=== PATIENT | female | born 2000 | race Hispanic/Latino ===

== ENCOUNTER 2018-03-01 12:36 | Emergency (ER) | payer OTHER, SELFPAY ==
[2018-03-01 14:09] LABS: Pregnancy Test - Urine (BHCG) Negative (Negative)
[2018-03-01 14:10] LABS: Pregu Control Background? CLEAR/WHITE (CLR/WHITE); Pregu Control Bar Appear? YES (CONTROL BAR); Specific Gravity 1.025 (1.002-1.036)
[2018-03-01] MEDS ORDERED: hydrOXYzine 25 MG TAB ONE (14:51)
== END 2018-03-01 15:58 | disposition home or self-care (01) ==
LOC: ERS 12:36
DX: R55 Syncope and collapse (principal)
CPT/HCPCS: 36416; 81025; 99284

== ENCOUNTER 2019-01-04 06:48 | Inpatient (IN) | payer OTHER ==
[2019-01-04 07:30] VITALS: BMI 31.4
--- NOTE | 2019-01-04 08:00 | PDOC.FPROB ---
FMR OB H&P: HPI - History of Present Illness Chief Complaint: Contractions Indentification: 18 year old at 38.6 wks History of Present Illness: 18 year old at 38.6 wks by 11.3 wk sono presents with contractions since 4: 00 AM. Patient states they are every 5 minutes and rates them as a 6-7/10. Patient denies vaginal bleeding, vaginal discharge, LoF. Endorses good movement. 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 History: No history of STD's - Surgical History Sx History: None - Social History Social History: Denies alcohol, tobacco, or drug use - Family History Family History: Insignificant FMR OB H&P: Medications - Current Home Medications: Medication Instructions Recorded Confirmed Type Vit 108/Iron/Folic AC 1 tablet PO DAILY 01/04/19 01/04/19 History [ One Tablet] Allergies/Adverse Reactions: Allergies Allergy/AdvReac Type Severity Reaction Status Date / Time No Known Allergies Allergy Verified 01/04/19 07:30 FMR OB H&P: ROS - Review of Systems General: denies: fever/chills, weight/appetite/sleep changes Eyes: denies: vision changes, double vision ENT: denies: nasal congestion, rhinorrhea Cardiovascular: denies: chest pain, palpitation, edema Respiratory: denies: cough, congestion, shortness of breath Gastrointestinal: denies: abdominal pain, nausea, vomiting, diarrhea, constipation Genitourinary (Female): reports: contractions. denies: dysuria, vaginal discharge, vaginal pain, vaginal bleeding, vaginal pressure Musculoskeletal: denies: pain, stiffness, tenderness Neurologic: denies: numbness, syncope Integumentary: denies: itching, rash Hematologic/Lymphatic: denies: prolonged or excessive bleeding Psychological: denies: depression, anxiety FMR OB H&P: Vital Signs - Maternal Vital signs: Vital Signs - First Documented Temp Pulse Resp BP 98.5 F 86 18 116/78 01/04/19 07:22 01/04/19 07:22 01/04/19 07:22 01/04/19 07:22 - Heart Tones Baseline: 150 Variability: moderate Acceleration: present Deceleration: absent Category: category 1 [place] contractions every: q2-3 min FMR OB H&P: Physical Exam - Physical Exam General: NAD, awake, alert and oriented HEENT: MMM, grossly normal vision, grossly normal hearing Neck: supple Heart: RRR, normal S1/S2, no murmurs/rubs/gallops General: CTAB, no respiratory distress Abdomen: soft, gravid, non-tender Musculoskeletal: normal gait and station, pulses present, FROM in all four extremities Neurological: no tremor, no focal deficit Skin: no rash, capillary refill <2 seconds Lymphatic: no unusual bruising or bleeding, no purpura Psychiatric: intact recent and remote memory, good judgement and insight, normal mood and affect - Pelvic Exam Vulva: normal hair distribution, no discharge, no blood SVE: /-2 FMR OB H&P: A/P - Problem List (1) Term Current Visit: Yes Status: Acute Code(s): Z34.80 - ENCOUNTER FOR SUPRVSN OF NORMAL , UNSP TRIMESTER (2) Late care Current Visit: Yes Status: Acute Code(s): O09.30 - SUPRVSN OF PREG W INSUFFICIENT ANTENAT CARE, UNSP TRIMESTER Disposition: 18 year old at 38.6 wks presents with contractions 1. TIUP in labor - Cervical check /-2, mid position, soft at appx 7:30 - Sim score of 8 - Admit to L&D for expectant management; pitocin if needed - q2-3 min contractions - Patient does not desire epidural 2. Late PNC (but LMP agrees with first trimester sono) - Consistent with appointments since presenting to care Dispo: Admit to L&D for expectant management. Pitocin if needed. Discussion: Date/Time: 01/04/19 0750 This H&P was discussed with Dr. Shultz who agrees with the above documentation and plan. Faculty note: I have reviewed and evaluated this patient. Plan as described. Signature: Debora Garcia, PGY-2
--- NOTE | 2019-01-04 08:26 | PDOC.EVN ---
Event Note - Event Note Event Note: Faculty attestation: H&P HPI: 38 weeks 6 days primip with good dates here for CTX since 0400 Q5min. No ROM, no VB, no dsch; good fm. GBS negative. Was 1cm last week in clinic Past med: neg Allergy: no Surgical: none Social: negative x 3 PHYSICAL: Vitals: 116/78 86 afebrile CX: 3-4/75/-2, midposition and soft...ann of 8 Monitor: FHTS cat 1, 150s; CTX every 2-3 minutes A/P: early term in latent labor but favorable CX with change from last week, regular CTX, GBS neg. We will admit for pain control and early labor based on CTX No ABX needed Pit[place] to augment if needed
[2019-01-04] MEDS ORDERED: Butorphanol Tartrate 1 MG/ML VIAL SLOW IVP PRN (08:37)
[2019-01-04] MEDS ORDERED: Ibuprofen 800 MG TAB PO PRN (08:37)
[2019-01-04] MEDS ORDERED: NS / Oxytocin 40 units/1000ml 1,000 ML IV PRN (08:37)
[2019-01-04] MEDS ORDERED: Lidocaine 1% (PF) 30 ML VIAL SC PRN (08:37)
[2019-01-04] MEDS ORDERED: Promethazine HCl 25 MG/ML VIAL IM PRN (08:37)
[2019-01-04] MEDS ORDERED: Docusate 100 MG CAP PO PRN (08:37)
[2019-01-04] MEDS ORDERED: Ondansetron PF 4 MG/2 ML Vial IVP PRN ×2 (08:37→16:33)
[2019-01-04] MEDS ORDERED: Acetaminophen 500 MG TAB PO PRN (08:37)
[2019-01-04] MEDS ORDERED: Lactated Ringer's 1,000 ML IV SCH (08:45)
[2019-01-04 11:08] LABS: Hemoglobin 14.7 g/dL (12.0-16.0); Mean Corpuscular HGB CONC 32.7 g/dL (32.0-36.0); Mean Corpuscular Hemoglobin 30.5 pg (25.0-35.0); Mean Corpuscular Volume 93.4 fL (78.0-98.0); Mean Platelet Volume 9.1 fL (7.4-10.4); Platelet Count 161 thou/uL (130-400); RBC Distribution Width 12.6 % (11.5-14.5); Red Blood Cell (RBC) Count 4.81 mill/uL (4.00-5.20); White Blood Cell (WBC) Count 19.7 thou/uL (4.8-10.8)
[2019-01-04 11:31] LABS: Syphilis Antibody Nonreactive (Nonreactive); Syphilis Antibody Index 0.06 S/CO (<1.00 Non-Reactive)
--- NOTE | 2019-01-04 12:17 | PDOC.LDPN ---
Labor & Delivery Progress Note - Subjective Subjective: comfortable - Objective Vital signs reviewed and normal: yes General: NAD, resting Uterine fundus: non tender SVE: 10:50 by Jose Dilation: 4 Effacement: 90% Station: -1 FHT: category 1, variability present [place] contractions every: q3-5 min - Assessment (1) Term Code(s): Z34.80 - ENCOUNTER FOR SUPRVSN OF NORMAL , UNSP TRIMESTER Current Visit: Yes Status: Acute (2) Late care Code(s): O09.30 - SUPRVSN OF PREG W INSUFFICIENT ANTENAT CARE, UNSP TRIMESTER Current Visit: Yes Status: Acute Plan: continue plan of care -: Patient making cervical change and dora regularly. Continue expectant management.
[2019-01-04 12:25] LABS: HBSAg Index 0.21 S/CO (0-0.99); Hep B Surf Ag Non-Reactive S/CO (NonReactive)
--- NOTE | 2019-01-04 14:42 | PDOC.LDPN ---
Labor & Delivery Progress Note - Subjective Subjective: painful contractions, vaginal pressure - Objective Vital signs reviewed and normal: yes General: breathing through contractions Uterine fundus: non tender SVE: By nurse at 13:40 Dilation: 7 Effacement: 100% Station: 0 FHT: category 1, variability present [place] contractions every: q2 min - Assessment (1) Term Code(s): Z34.80 - ENCOUNTER FOR SUPRVSN OF NORMAL , UNSP TRIMESTER Current Visit: Yes Status: Acute (2) Late care Code(s): O09.30 - SUPRVSN OF PREG W INSUFFICIENT ANTENAT CARE, UNSP TRIMESTER Current Visit: Yes Status: Acute Plan: continue plan of care -: Progressing well. No interventions needed. Continue expectant management.
--- NOTE | 2019-01-04 16:02 | PDOC.EVN ---
Event Note - Event Note Event Note: OBGYN Faculty note: I was called about 30 minutes ago or so that this patient was delievering in LDR3. 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 Patient underwent without issues. Please see full resident note regarding that delivery, with the other construction crew member present.
[2019-01-04] MEDS ORDERED: diphenhydrAMINE 25 MG CAP PO PRN (16:33)
[2019-01-04] MEDS ORDERED: Lanolin Ointment 7 GM TUBE TOP PRN (16:33)
[2019-01-04] MEDS ORDERED: Milk Of Magnesia 30 ML UDCUP PO PRN (16:33)
[2019-01-04] MEDS ORDERED: Preparation H Ointment 28 GM TUBE PR PRN (16:33)
[2019-01-04] MEDS ORDERED: Bisacodyl 10 MG SUPP PR PRN (16:33)
[2019-01-04] MEDS ORDERED: Benzocaine/Menthol 20-0.5% 60 ML CAN TOP PRN (16:33)
[2019-01-04] MEDS ORDERED: NS / Oxytocin 40 units/1000ml 1,000 ML IV SCH (16:33)
[2019-01-04] MEDS: Ferrous Sulfate 325 MG TAB PO SCH (19:07)
[2019-01-04] MEDS: Ibuprofen 800 MG TAB PO SCH (21:49)
[2019-01-04] MEDS: Docusate Calcium (SURFAK) 240 MG CAP PO SCH (21:50)
--- NOTE | 2019-01-05 02:29 | PDOC.PP ---
Post Progress Note Post Day #: 1 Subjective: Patient awake with baby, doing well. No issues. I discussed with her that I was in the OR when she was delivering, so the other MDs attended her PO intake tolerated: yes Flatus: yes Ambulation: yes Vital Signs (12 hours) Temp Pulse Resp BP Pulse Ox 01/05/19 00:43 98.4 F 108 H 18 130/66 98 01/04/19 20:00 98.5 F 129 H 20 132/61 100 01/04/19 18:37 98.7 F 129 H 16 129/64 98 Weight Weight 183 lb - Physical Examination General: NAD Cardiovascular: no m/r/g Respiratory: clear to auscultation bilaterally Abdominal: + bowel sounds, lochia, no distention, appropriately TTP Extremities: negative homans (B) Psychiatric: A&Ox3, normal affect Result Diagrams: 01/04/19 10:39 Additional Labs: Post Labs Blood Type O POSITIVE 01/04/19 10:39 Hep Bs Antigen Non-Reactive S/CO (NonReactive) 01/04/19 10:39 (1) Term Code(s): Z34.80 - ENCOUNTER FOR SUPRVSN OF NORMAL , UNSP TRIMESTER Status: Acute (2) Late care Code(s): O09.30 - SUPRVSN OF PREG W INSUFFICIENT ANTENAT CARE, UNSP TRIMESTER Status: Acute (3) Vaginal delivery Code(s): O80 - ENCOUNTER FOR FULL-TERM UNCOMPLICATED DELIVERY Status: Acute - Assessment/Plan A/P: PPD1 for this , doing well. Plan: routine PP care BPs normal Initial HCT noted with value of 44...no evidence HTN Continue to follow today...probable dsch PPD2 tomorrow Tuesday
[2019-01-05] MEDS: Ibuprofen 800 MG TAB PO SCH ×3 (06:01→21:44)
[2019-01-05] MEDS: Ferrous Sulfate 325 MG TAB PO SCH (07:17)
[2019-01-05] MEDS: Docusate Calcium (SURFAK) 240 MG CAP PO SCH ×2 (08:51→21:44)
[2019-01-05] MEDS: Prenatal Vitamin 1 TAB PO SCH (08:51)
[2019-01-05] MEDS ORDERED: Adacel (T-DAP) 0.5 ML SYRINGE IM ONE (09:00)
[2019-01-06] MEDS: Ibuprofen 800 MG TAB PO SCH ×2 (05:48→15:09)
[2019-01-06] MEDS: Ferrous Sulfate 325 MG TAB PO SCH (07:38)
[2019-01-06 07:39] VITALS: BP 116/68; TEMP 98.1
[2019-01-06] MEDS: Prenatal Vitamin 1 TAB PO SCH (08:57)
[2019-01-06] MEDS: Docusate Calcium (SURFAK) 240 MG CAP PO SCH (08:57)
--- NOTE | 2019-01-06 09:32 | PDOC.PP ---
Post Progress Note Post Day #: 2 Subjective: Patient doing well. No significant overnight events. Lochia minimal. Patient ambulating. PO intake tolerated: yes Flatus: yes Ambulation: yes Vital Signs (12 hours) Temp Pulse Resp BP Pulse Ox 01/06/19 07:38 98.1 F 77 18 116/68 99 Weight Weight 83.007 kg - Physical Examination General: NAD Cardiovascular: RRR Respiratory: non-labored breathing Abdominal: + bowel sounds, lochia (minimal), no distention, appropriately TTP Fundus firm & at: below umbilicus Neurological: no gross focal deficits Psychiatric: A&Ox3, normal affect Result Diagrams: 01/04/19 10:39 Additional Labs: Post Labs Blood Type O POSITIVE 01/04/19 10:39 Hep Bs Antigen Non-Reactive S/CO (NonReactive) 01/04/19 10:39 (1) Late care Code(s): O09.30 - SUPRVSN OF PREG W INSUFFICIENT ANTENAT CARE, UNSP TRIMESTER Status: Acute (2) Term delivered Code(s): O80 - ENCOUNTER FOR FULL-TERM UNCOMPLICATED DELIVERY Status: Acute (3) (spontaneous vaginal delivery) Code(s): O80 - ENCOUNTER FOR FULL-TERM UNCOMPLICATED DELIVERY Status: Acute - Assessment/Plan A/P: PPD2 for this , doing well. Plan: routine PP care BPs normal uncertain of contraception at this time follow with PNC in 2 weeks Plan to d/c this afternoon after 's bilirubin results. If needs bili lights, then plan for bed and breakfast if possible. Addendum - Attending - Attending Attestation Date/Time: 01/09/19 0916 I evaluated the patient and discussed the management with Dr. Islas. I agree with the Assessment and Plan documented above.
--- NOTE | 2019-01-08 09:39 | DN ---
DATE OF PROCEDURE: 01/04/2019 DELIVERING PHYSICIAN: Dr. Debora Garcia. PROCEDURE PERFORMED: Spontaneous vaginal delivery. ANESTHESIA: Local for repair. ESTIMATED BLOOD LOSS: 51 mL. PREOPERATIVE DIAGNOSES: Term intrauterine , in labor. care. INDICATION: This is a 18-year-old female, G1, P0, who presented in active labor. DELIVERY NOTE: This is a 18-year-old, G1, P0 at 38 and 6 weeks. She delivered a viable male at 1536 hours on 01/04 via spontaneous vaginal delivery. Following uneventful and a planned course, a vigorous male was delivered over intact perineum in occipitoanterior position, most compound presentation. Anterior shoulder and remainder of body delivered. No nuchal cord. The head was held down. The mouth and nares were bulb suctioned. Cord was cut after delayed cord clamping. Cord blood collected. Placenta delivered intact with a three-vessel cord noted. Fundal massage was performed and the fundus was firm. The cervix and vagina were inspected and found to have a second-degree perineal laceration which was repaired using 2-0 Vicryl on each. Local anesthetic was used prior to the repair. After repair, the laceration was noted to be hemostatic. went to nursery in good condition for routine care. Apgars were 8 and 9 at one and five minutes respectively. The patient tolerated the procedure well, went to after routine recovery/care. Job ID: [id number]
== END 2019-01-06 17:38 | disposition home or self-care (01) | DRG 807 ==
LOC: L&D/OP 06:48 → L&D 10:58 → 3SE 18:35
PROVIDERS: ADMIT Obstetrics & Gynecology; ATTEND Obstetrics & Gynecology
PROC: 0KQM0ZZ Repair Perineum Muscle, Open Approach (ICD-10-PCS; principal; 2019-01-04)
PROC: 10E0XZZ Delivery of Products of Conception, External Approach (ICD-10-PCS; 2019-01-04)
DX: O70.1 Second degree perineal laceration during delivery (principal); Z37.0 Single live birth; Z3A.38 38 weeks gestation of pregnancy
CPT/HCPCS: 36415; 85027; 86780; 86850; 86900; 86901; 87340; 99285; J0595; J2001

== ENCOUNTER 2019-03-30 21:21 | Emergency (ER) | payer OTHER ==
[2019-03-30] MEDS ORDERED: Lorazepam 2 MG/ML VIAL ONE (21:53)
[2019-03-30 22:11] LABS: #Basophils 0.1 thou/uL (0.0-0.2); #Eosinphils 0.1 thou/uL (0.0-0.7); #Lymphocytes 3.4 thou/uL (1.20-3.40); #Monocytes 0.6 thou/uL (0.11-0.59); #Neutrophils 2.7 thou/uL (1.40-6.50); %Basophils 0.8 % (0.0-1.0); %Eosinophils 1.7 % (0.0-10.0); %Lymphocytes 49.1 % (28.0-48.0); %Monocytes 8.7 % (0.0-4.0); %Neutrophils 39.7 % (31.0-61.0); Hemoglobin 14.2 g/dL (12.0-16.0); Mean Corpuscular HGB CONC 33.7 g/dL (32.0-36.0); Mean Corpuscular Hemoglobin 29.5 pg (25.0-35.0); Mean Corpuscular Volume 87.7 fL (78.0-98.0); Mean Platelet Volume 8.3 fL (7.4-10.4); Platelet Count 191 thou/uL (130-400); RBC Distribution Width 11.9 % (11.5-14.5); White Blood Cell (WBC) Count 6.9 thou/uL (4.8-10.8)
[2019-03-30 22:28] LABS: Anion Gap 12 mmol/L (10-20); BUN (Urea Nitrogen) 13 mg/dL (7.0-18.7); Calc. Creatinine Clearance 0 mL/min (70-130); Calcium 9.7 mg/dL (7.8-10.44); Carbon Dioxide 26 mmol/L (22-29); Chloride 107 mmol/L (98-107); Estimated GFR-MDRD Greater than 90; Glucose 88 mg/dL (70-105); Potassium 3.7 mmol/L (3.5-5.1); Sodium 141 mmol/L (136-145)
[2019-03-30 22:33] LABS: BHCG - Serum Negative (NEGATIVE); Pregs Control Background? CLEAR/WHITE (CLR/WHITE); Pregs Control Bar Appear? YES (CONTROL BAR)
[2019-03-31 00:12] LABS: HBCM Index 0.11 S/CO (0-0.79); HBSAg Index 0.39 S/CO (0-0.99); Hep A IgM AB Non-Reactive (NonReactive); Hep A IgM S/CO 0.25 S/CO (0-0.79); Hep B Surf Ag Non-Reactive S/CO (NonReactive); Hep C IgG Ab Non-Reactive (NonReactive); Hepatitis B Core IgM Abs Non-Reactive (NonReactive)
== END 2019-03-31 00:03 | disposition home or self-care (01) ==
LOC: ERS 21:21
DX: F41.9 Anxiety disorder, unspecified (principal)
CPT/HCPCS: 36415; 80048; 80074; 84703; 85025; 96361; 96374; J2060

== ENCOUNTER 2019-11-09 22:03 | Emergency (ER) | payer MEDICAID, OTHER, SELFPAY ==
[2019-11-09] MEDS ORDERED: Diazepam 5 MG TAB ONE (23:09)
[2019-11-09] MEDS ORDERED: Acetaminophen 500 MG TAB ONE (23:18)
--- NOTE | 2019-11-09 23:22 | CT ---
CT Brain WO Con HISTORY: Shaking to right arm and right frontal headache. COMPARISON: None. FINDINGS: The ventricular and cisternal system is within normal limits. There are no signs of intrace rebral hemorrhage or extra-axial fluid collections. The mastoid air cells are clear. There is some mucosal change seen within the visualized portions of the sphenoid and ethmoid air cells. Maxillary sinuses are not visualized. IMPRESSION: No acute intracranial abnormalities.
== END 2019-11-10 00:55 | disposition home or self-care (01) ==
LOC: ERS 22:03
DX: R50.9 Fever, unspecified (principal); R25.1 Tremor, unspecified; F41.0 Panic disorder [episodic paroxysmal anxiety]
CPT/HCPCS: 70450; 87081; 87430; 87804; 96360

== ENCOUNTER 2020-09-09 19:02 | Emergency (ER) | payer SELFPAY ==
[2020-09-09] MEDS ORDERED: traMADol HCl 50 MG TAB ONE (20:04)
[2020-09-09] MEDS ORDERED: Boostrix 0.5 ML VIAL ONE (20:10)
[2020-09-09] MEDS ORDERED: Bacitracin 1 PK ONE (20:21)
== END 2020-09-09 20:32 | disposition home or self-care (01) ==
LOC: ERS 19:02
DX: T24.212A Burn of second degree of left thigh, initial encounter (principal); T31.0 Burns involving less than 10% of body surface; F41.9 Anxiety disorder, unspecified; X15.8XXA Contact with other hot household appliances, initial encounter
CPT/HCPCS: 90471; 90715

== ENCOUNTER 2024-01-11 08:16 | Emergency (ER) | payer OTHER, SELFPAY ==
[2024-01-11 09:52] LABS: Bacteria/HPF None Seen HPF (None Seen); Bilirubin Negative (Negative); Blood, Urine Negative (Negative); CAUTI Indications for Culture Pregnancy; Clarity Clear (Clear); Glucose, Urine (Dipstick) 70 mg/dL (Negative); Ketone, Urine Negative (Negative); Leukocyte Negative Leu/uL (Negative); Nitrite Negative (Negative); Protein, Urine (Dipstick) Negative (Neg-Trace); RBC/HPF None Seen HPF (0-3); Specific Gravity, Urine 1.024 (1.002-1.036); Squamous Epithelial 0-3 HPF (0-3); Urobilinogen Normal mg/dL (Less than 2); WBC/HPF 0-3 HPF (0-3)
[2024-01-11 09:57] LABS: Urine Culture Reflex Yes Yes
[2024-01-11 11:34] LABS: #Eosinphils 0.1 thou/uL (0.0-0.7); #Monocytes 0.5 thou/uL (0.11-0.59); #Neutrophils 5.6 thou/uL (1.40-6.50); %Basophils 0.1 % (0.0-1.0); %Eosinophils 0.9 % (0.0-10.0); %Lymphocytes 22.5 % (21.0-51.0); %Monocytes 6.1 % (0.0-10.0); Hematocrit 35.1 % (36.0-47.0); Hemoglobin 12.3 g/dL (12.0-16.0); Mean Corpuscular Hemoglobin 31.7 pg (27.0-31.0); Mean Corpuscular Volume 90.5 fl (78.0-98.0); Mean Platelet Volume 10.3 fL (7.4-10.4); Platelet Count 162 10x3/uL (130-400); RBC Distribution Width 13.5 % (11.5-14.5); Red Blood Cell (RBC) Count 3.88 mill/uL (4.20-5.40); White Blood Cell (WBC) Count 8.1 10x3/uL (4.8-10.8)
[2024-01-11 12:00] LABS: Anion Gap 9 mmol/L (10-20); BUN (Urea Nitrogen) 6 mg/dL (7.0-18.7); Calc. Creatinine Clearance 0 mL/min (70-130); Carbon Dioxide 23 mmol/L (22-29); Chloride 107 mmol/L (98-107); Estimated GFR 126; Glucose 82 mg/dL (70-105); Potassium 3.8 mmol/L (3.5-5.1); Sodium 135 mmol/L (136-145)
== END 2024-01-11 12:29 | disposition home or self-care (01) ==
LOC: ERS 08:16
DX: O20.9 Hemorrhage in early pregnancy, unspecified (principal); Z3A.18 18 weeks gestation of pregnancy
CPT/HCPCS: 36415; 76815; 80048; 81001; 85025; 86850; 86900; 86901; 87086